=== PATIENT | male | born 2000 | race Caucasian/White ===

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

== ENCOUNTER 2021-07-07 18:04 | Emergency (ER) | payer SELFPAY ==
--- NOTE | 2021-07-07 18:12 | XRR_ITS ---
PROCEDURE INFORMATION: Exam: XR Chest Exam date and time: 07/07/2021 6:12 PM Age: 20 years old Clinical indication: Fever and shortness of breath; Additional info: Fever and upper respiratory symptoms TECHNIQUE: Imaging protocol: XR of the chest. Views: 1 view. COMPARISON: No relevant prior studies available. FINDINGS: Lungs: Unremarkable. No consolidation. Pleural spaces: Unremarkable. No pleural effusion. No pneumothorax. Heart/Mediastinum: Unremarkable. No cardiomegaly. Bones/joints: Unremarkable. XR/XR chest 1V portable [id number] IMPRESSION: No acute findings.
[2021-07-07 18:42] VITALS: BP 113/70; PULSE 101; RESP 20; TEMP 38.1; O2SAT 98; BMI 24.3
[2021-07-07 20:32] LABS: Influenza A by IFA Negative (Negative); Influenza B by IFA Negative (Negative)
[2021-07-07 20:55] VITALS: BP 115/56; PULSE 93; RESP 18; TEMP 37.4; O2SAT 100
--- NOTE | 2021-07-07 21:13 | ED_ITS ---
HPI - General Adult General: Chief complaint: Fever Stated complaint: fever,body aches Time Seen by Provider: 07/07/21 21:04 History of Present Illness: HPI narrative: Patient is a 20-year-old male up-to-date with vaccines presenting to emergency room 1 day of headache, bilateral flank pain and muscle pain around the hips. Patient first described pain upon waking this morning began having a headache. Patient reports mild cough and shortness of breath with fatigue and decreased energy. Patient has not been in contact with anyone Covid. Patient denies any neck stiffness. Denies any nausea/vomiting, abdominal complaints including diarrhea melena or he matochezia. Patient is able to tolerate p.o. without difficulty no other medical problems. Denies any urinary symptoms, hematuria, or history kidney stone. Onset:earlier AM Duration:ongoing Location:home Severity:moderate Review of Systems Narrative: Constitutional: No fever, no chills. HEENT: No vision changes CV: No chest pain, no palpitations PULM: +cough, +dyspnea. GI: No abdominal pain, no N/V/D. : No dysuria MSKEL: +b/l flank and hip pain SKIN: No new rashes, no lesions. NEURO: No headache, no focal weakness. HEME: No visible bruises PSYCH: Normal mood PFSH ED PFSH: Medical History (Updated 07/07/21 @ 21:11 by Norris Mata MD) No pertinent past medical history Surgical History H/O ventricular septal defect repair Social History Smoking and tobacco status: current every day smoker Physical Exam Narrative: EXAM NARRATIVE: Head: Atraumatic Eyes: PERRL, conjunctiva without injection ENT: Mucous membrane moist NECK: Supple, ROM intact, no nuchal rigidity LUNGS: LCTAB, no crackles/rhonchi CV: RRR ABDOMEN: Soft, No focal TTP. NO guarding rebound, guarding, rigidity. No CVA tenderness to percussion. Neg Berger/Neg McBurney's point tenderness, no suprabupic tenderness to palpation EXTREMITY: Normal ROM SKIN: No rash or erythema NEURO: Awake and alert, no focal motor deficits PSYCH: Normal mood and affect Course Vital Signs: Vital signs: Vital Signs Temperature 99.4 F 07/07/21 20:55 Pulse Rate 93 07/07/21 20:55 Respiratory Rate 18 07/07/21 20:55 Blood Pressure 115/56 07/07/21 20:55 Pulse Oximetry 100 07/07/21 20:55 MDM - General Adult MDM Narrative: Medical decision making narrative: Patient is a 20-year-old male presented presenting with 1 day of headache, bilateral flank pain and hip pain, and cough. On exam, patient is afebrile today. X-ray chest did not show any signs of focal pneumonia. Influenza negative. Covid PCR pending. Given presentation, suspect the patient has early viral prodrome consistent with possible Covid. No suspicion for meningitis at this time. I have given patient follow up with our case operator to be seen by a primary care provider for evaluation of symptoms which are likely viral. Patient aware of a call from our case operator to schedule for appointment(s) and verbalizes understanding of the importance of following up. At 9:43pm, covid PCR is positive/ Rx tylenol PRN fever, menthol/lidocaine PRN pain and maalox PRN abd pain Disposition: Discharge. Patient counseled regarding diagnostic impression, treatment plan. Patient given ED strict return precautions to return for continuation, worsening, or development of new symptoms. Instructed to f/u w/ PCP regarding symptoms today. Patient verbalized understanding. Lab Data: Labs: Lab Results 07/07/21 07/07/21 19:25 19:25 Coronavirus 229E ( PCR) Not detected (NOT DETECT) Influenza Type A A g Negative (Negative) Influenza Type B A g Negative (Negative) SARS-CoV-2 (PCR) Detected A (NOT DETECT) Imaging Data^: Other Imaging: Radiologist's impression: [address] [id number] ReportSigned Patient: Baldemar Judd #: [id number]: 2000Acct#:[id number]/Sex: 20 / MADM Date: 07/07/21Loc: ERRoom/Bed:Attending Dr: Ordering Provider/Ordering MD: Duane Patel Date of Service: 07/07/21 Procedure(s): XR chest 1V portable [id number] Accession Number(s): [id number] Report Number: [id number] PROCEDURE INFORMATION: Exam: XR Chest Exam date and time: 07/07/2021 6:12 PM Age: 20 years old Clinical indication: Fever and shortness of breath; Additional info: Fever and upper respiratory symptoms TECHNIQUE: Imaging protocol: XR of the chest. Views: 1 view. COMPARISON: No relevant prior studies available. FINDINGS: Lungs: Unremarkable. No consolidation. Pleural spaces: Unremarkable. No pleural effusion. No pneumothorax. Heart/Mediastinum: Unremarkable. No cardiomegaly. Bones/joints: Unremarkable. XR/XR chest 1V portable [id number] IMPRESSION: No acute findings. Dictated By:Kalia Blood DOSigned By:Kalia Blood DOSigned Date/Time:07/07/21/ 11 Discharge Plan Discharge Patient Disposition: Home Clinical Impression: Fever, Myalgia, Flank pain Condition: Stable Prescriptions: New acetaminophen 500 mg tablet 500 mg PO Q6H PRN (Reason: pain) 5 Days Qty: 20 RF: 0 lidocaine 5 % adhesive patch,medicated 1 patch topical DAILY PRN (Reason: pain) 10 Days Qty: 10 RF: 0 ibuprofen 400 mg tablet 400 mg PO Q8H PRN (Reason: pain) 7 Days Qty: 21 RF: 0 Maalox Advanced 1,000-60 mg tablet,chewable 1 tab PO TID PRN (Reason: abdominal pain) 7 Days Qty: 21 RF: 0 Biofreeze (menthol) 5 % gel 1 ea topical BID PRN (Reason: pain) 10 Days Qty: 1 RF: 0 No Action guaifenesin 400 mg tablet 400 mg PO TID 7 Days Qty: 21 RF: 0 benzonatate [Tessalon Perles] 100 mg capsule 100 mg PO BID PRN (Reason: cough) Qty: 14 RF: 0 albuterol sulfate [Ventolin HFA] 90 mcg/actuation HFA aerosol inhaler 2 puff inhalation Q6H PRN (Reason: shortness of breath or wheezing) Qty: 6.7 RF: 0 ondansetron 4 mg tablet,disintegrating 4 mg PO Q8H PRN (Reason: nausea and vomiting) Qty: 14 RF: 0 Discharge Orders: Discharge ED (Routine); Ordered 07/07/21 Ordered By: Norris Mata Referrals: Carlos Enrique Law MD [Primary Care Provider] - Discharge Diet: Advance as tolerated Discharge Activity: Resume usual activity Patient Instructions: Fever in Adults (ED), COVID-19 (Coronavirus Disease 2019) (ED) Activity Restrictions/Additional Instructions: Come back to the emergency room if your symptoms worsen, have any shortness of breath, fever/chills, dehydration, inability tolerate p.o., any difficulty breathing, or any new or concerning complaints. Please return the emergency room if your pulse ox reads less than 88%. Coding Level of Care Code ED Early Intervention School Psychologist for Melissa Macias
[2021-07-07] MEDS: ketorolac 30 mg/mL INJ IM (21:25)
[2021-07-07] MEDS: acetaminophen 500 mg Tablet 1000 MG PO (21:26)
[2021-07-07 21:29] LABS: Adenovirus Not Detected (NOT DETECT); Chlamydia Pneumoniae Not Detected (NOT DETECT); Coronavirus 229E,HKU1,NL63,OC4 Not Detected (NOT DETECT); Human Metapneumovirus Not Detected (NOT DETECT); Human Rhinovirus/Enterovirus Not Detected (NOT DETECT); Influenza A Not Detected (NOT DETECT); Influenza A H1 Not Detected (NOT DETECT); Influenza A H1-2009 Not Detected (NOT DETECT); Influenza A H3 Not Detected (NOT DETECT); Influenza B Not Detected (NOT DETECT); Mycoplasma Pneumoniae Not Detected (NOT DETECT); Parainfluenza Virus Type 1 Not Detected (NOT DETECT); Parainfluenza Virus Type 2 Not Detected (NOT DETECT); Parainfluenza Virus Type 3 Not Detected (NOT DETECT); Parainfluenza Virus Type 4 Not Detected (NOT DETECT); Respiratory Syncytial Virus A Not Detected (NOT DETECT); Respiratory Syncytial Virus B Not Detected (NOT DETECT); SARS-COV-2 Detected (NOT DETECT)
--- NOTE | 2021-07-07 22:12 | PC.NURSE ---
patient in no obvious distress. patient pass PO challenge. no nausea vomiting with 2 cups of water. Patient states pain 5/10 improved after toradol shot.
[2021-07-07 22:17] VITALS: BP 125/63; PULSE 85; RESP 18; TEMP 36.8; O2SAT 97
[2021-07-07 22:18] VITALS: BP 125/63; PULSE 84; RESP 18; TEMP 36.8; O2SAT 98
== END 2021-07-07 22:20 | disposition home or self-care (01) ==
PROVIDERS: Physician Assistant; Emergency Provider Emergency Medicine; PCP Family Medicine
DX: F17.210 Nicotine dependence, cigarettes, uncomplicated (principal); R50.9 Fever, unspecified; M79.10 Myalgia, unspecified site; R10.9 Unspecified abdominal pain; R05.9 Cough, unspecified
CPT/HCPCS: 71045; 87635; 87804; 96372; 99283; J1885

== ENCOUNTER 2022-05-19 11:00 | Emergency (ER) | payer SELFPAY ==
[2022-05-19 11:47] VITALS: BMI 22.9
[2022-05-19 11:50] VITALS: BP 131/72; PULSE 73; RESP 18; TEMP 36.8; O2SAT 96
--- NOTE | 2022-05-19 11:51 | W.ED.FALL ---
HPI - Fall General: Chief Complaint: Fall Stated Complaint: fall, loc Time Seen by Provider: 05/19/22 11:40 History of Present Illness: Mr. Judd is a 21-year-old male with remote history of VSD repair presenting to the emergency department due to fall with loss of consciousness. 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 Probably a fair amount downtime though exact duration is unclear. Mostly complaining of left-sided body pain. Intensity of discomfort is moderate. Worse with palpation and movement. Denies history of syncope in the past. No family history of early cardiac or arrhythmias that he knows of. No recent changes in health. No other specific changes in health, exacerbating, or alleviating factors identified. Onset (ago): hour(s) Fall from: standing Fall witnessed: no Loss of consciousness: Yes Length of LOC: minutes(s) Prolonged down time: unclear Context: tripped/slipped Severity: moderate Review of Systems General: Reports: 10 or more systems reviewed and unremarkable except in HPI and below PFSH ED PFSH: Medical History (Updated 05/27/22 @ 00:00 by ) No pertinent past medical history Surgical History H/O ventricular septal defect repair Social History Smoking and tobacco status: current every day smoker Physical Exam Const: COMMON NORMALS: alert GENERAL APPEARANCE: cooperative and well developed HENMT: COMMON NORMALS: normocephalic and atraumatic HEAD & SCALP: normocephalic and atraumatic THROAT: posterior oropharynx normal OTHER: No carr signs or raccoon eyes. No hemotympanum. No otorrhea or rhinorrhea. Jaw alignment normal. Dentition baseline. No obvious bony step-offs. No septal hematoma. No evidence of ocular entrapment. Eye: COMMON NORMALS: conjunctivae normal CONJUNCTIVA: Yes conjunctivae normal SCLERA: sclerae normal Neck/C-Spine: COMMON NORMALS: supple GENERAL: Yes trachea midline Resp: COMMON NORMALS: normal respiratory effort EFFORT & INSPECTION: Yes able to speak in complete sentences Cardio: COMMON NORMALS: regular rate and regular rhythm RATE: regular rate RHYTHM: regular rhythm GI: COMMON NORMALS: Soft to palpation PALPATION: Yes Soft to palpation and No Tenderness to palpation present (GI) PERCUSSION: normal to percussion Extremity: GENERAL: Yes normal exam except as noted and No edema Neuro: COMMON NORMALS: moves all extremities SENSORIUM/ORIENTATION: Yes alert and No Orientation impaired Psych: COMMON NORMALS: mental status grossly normal and Normal thought process present THOUGHT PROCESS: Normal thought process present Course Vital Signs: Vital signs: Vital Signs Temperature 98.3 F 05/19/22 11:50 Pulse Rate 60 05/19/22 13:58 Respiratory Rate 18 05/19/22 13:58 Blood Pressure 124/67 05/19/22 13:58 Pulse Oximetry 99 05/19/22 13:58 Oxygen Delivery Me thod 05/19/22 13:58 MDM - Fall Medical Decision Making 21-year-old male presenting with fall of unclear circumstances with loss of consciousness. Additional exam performed as above. EKG shows sinus rhythm, short ND interval, bradycardia, interventricular conduction delay, no STEMI. Imaging including CT head, cervical spine, and x-rays negative for acute traumatic injury requiring intervention. Patient improved after treatment with analgesia, muscle laxer, morphine. He ambulates and tolerates p.o. intake. Most likely etiology of patient's symptoms is follow-up with concussion/closed head injury and loss of consciousness. The results of ED evaluation were discussed with the patient including prescriptions and/or symptomatic cares (if applicable) including appropriate and responsible use, followup plan, and return precautions. The patient verbalized understanding and felt safe for discharge. Medical Records I reviewed the patient's medical records. Lab Data I reviewed the patient's lab results. Radiology Impressions Cervical Spine CT 05/19/22 11:59 IMPRESSION: No evidence of acute fracture or dislocation. Chest X-Ray 05/19/22 11:59 IMPRESSION: 1. No acute cardiopulmonary finding. No change. Head CT 05/19/22 11:59 IMPRESSION: 1. No evidence of intracranial hemorrhage or mass effect 2. No acute intracranial findings. Pelvis X-Ray 05/19/22 11:59 IMPRESSION: 1. Negative pelvis. Shoulder X-Ray 05/19/22 11:59 IMPRESSION: Negative left shoulder. Discharge Plan Discharge Patient Disposition: Home Clinical Impression: Concussion with loss of consciousness, Multiple contusions Condition: Stable Prescriptions: No Action albuterol sulfate [Ventolin HFA] 90 mcg/actuation HFA aerosol inhaler 2 puff inhalation Q6H PRN (Reason: shortness of breath or wheezing) Qty: 6.7 0RF ondansetron 4 mg tablet,disintegrating 4 mg PO Q8H PRN (Reason: nausea and vomiting) Qty: 14 0RF cyclobenzaprine 10 mg tablet 10 mg PO TID PRN (Reason: muscle spasm) Qty: 30 0RF prednisone 20 mg tablet 20 mg PO DAILY Qty: 5 0RF Rx Instructions: take with food. Discharge Orders: Discharge ED (Routine); Ordered 05/19/22 Ordered By: Micky Jose Referrals: Carlos Enrique Law MD [Primary Care Provider] - Discharge Diet: Usual diet Discharge Activity: Increase activity as tolerated Patient Instructions: Head Injury (ED), Contusion in Adults (ED), Pain Management Activity Restrictions/Additional Instructions: Thank you for visiting the emergency department. You were seen evaluated for likely fall with loss of consciousness. The most likely cause of your symptoms is related to closed head injury/traumatic brain injury. I do not see any broken bones on x-ray or evidence of internal injuries on CT scan. You may use oiai-rzn-gkcydjw medications such as acetaminophen and ibuprofen for pain however please do not exceed the daily recommended dosage and please keep in mind that many namebrand medications contain the same active ingredients. You may also use ice, heat, lidocaine patches, other topical fgim-bzt-ifqzzjo medications if they help. I would expect more soreness tomorrow and then slow improvement. Return to the emergency department for uncontrolled symptoms or anything else that you are concerned about a feel needs emergency department evaluation. Stand Alone Forms: Work/School Release Coding Level of Care Code ED Salon Sales Consultant for Melissa Fwd Exam Comprehensive
--- NOTE | 2022-05-19 11:59 | CT_ITS ---
WS: [id number] CT HEAD TECHNIQUE: Noncontrast CT of the head obtained from the skullbase to the vertex. CLINICAL INFORMATION: fall, loc, posterior pain COMPARISON: 2016 DLP: 1337.[address] scans at [facility] use at least one of these dose optimization techniques: automated e xposure control; mA and/or kV adjustment per patient size (includes targeted exams where dose is matc hed to clinical indication); or iterative reconstruction. FINDINGS: No evidence of intracranial hemorrhage or mass effect. Ventricular system and basal cisterns are rodriguez nt. No extra-axial fluid collections. No evidence of mass or mass effect. Normal roy-white different iation. Paranasal sinuses and mastoid air cells are well aerated. .Normal visualized soft tissues. CT/CT head wo con* [id number] IMPRESSION: 1. No evidence of intracranial hemorrhage or mass effect 2. No acute intracranial findings.
--- NOTE | 2022-05-19 11:59 | XR_ITS ---
WS: [id number] Exam: XR shoulder LT min 2V* [id number] Date/Time of Exam: 05/19/2022 12:12 PM Reason For Exam: fall, loc, pain The projections of the shoulder reveal no fractures, anomalies, soft tissue swelling, or calcificatio ns. There is normal bony alignment. No irregularity of the bony architecture is noted. XR/XR shoulder LT min 2V* [id number] IMPRESSION: Negative left shoulder.
--- NOTE | 2022-05-19 11:59 | XR_ITS ---
WS: [id number] Exam: XR pelvis 1-2V* [id number] Date/Time of Exam: 05/19/2022 12:12 PM Reason For Exam: fall, loc, pain No acute fracture. The hips and SI joints are unremarkable. XR/XR pelvis 1-2V* [id number] IMPRESSION: 1. Negative pelvis.
--- NOTE | 2022-05-19 11:59 | CT_ITS ---
WS: [id number] CT CERVICAL TRAUMA TECHNIQUE: Noncontrast CT of the cervical spine with coronal and sagittal reformatted images. CLINICAL INFORMATION: fall, loc, pain COMPARISON: None. DLP: 1337.[address] scans at [facility] use at least one of these dose optimization techniques: automated e xposure control; mA and/or kV adjustment per patient size (includes targeted exams where dose is matc hed to clinical indication); or iterative reconstruction. FINDINGS: Straightening with reversal of the normal cervical lordosis. Normal craniocervical junction. Normal C 1-C2 articulation. Dens is normal in appearance. Normal occipital condyles. No high-grade spinal willie l narrowing. Normal C1 ring. No evidence of acute fracture or dislocation. Normal prevertebral soft tissues. Mastoids air cells are well aerated. CT/CT cervical spin wo con* [id number] IMPRESSION: No evidence of acute fracture or dislocation.
--- NOTE | 2022-05-19 11:59 | XR_ITS ---
WS: [id number] Exam: XR chest 1V portable [id number] Date/Time of Exam: 05/19/2022 12:12 PM Reason For Exam: fall, loc, pain Comparison 07/07/2021. The lungs are fully inflated and clear. Normal cardiomediastinal silhouette. No pleural effusions. Tayo ny structures are intact. Signs of median sternotomy. XR/XR chest 1V portable [id number] IMPRESSION: 1. No acute cardiopulmonary finding. No change.
[2022-05-19 12:27] VITALS: RESP 12; O2SAT 98
[2022-05-19] MEDS: morphine 4 mg/mL SDV 1 mL IM (12:27)
--- NOTE | 2022-05-19 13:05 | ECG_ITS ---
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 Measurements Intervals Eighty Four Rate: 50 P: 20 MD: 105 QRS: 103 QRSD: 107 T: 38 QT: 414 QTc: 380 Interpretive Statements SINUS BRADYCARDIA WITH SHORT MD INTERVAL RIGHT AXIS DEVIATION [QRS AXIS > 100] INCOMPLETE RIGHT BUNDLE BRANCH BLOCK [90+ ms QRS DURATION, TERMINAL R IN V1/V2, 40+ ms S IN I/aVL/V4/V5/V6] Compared to ECG 08/22/2019 14:36:22 Right-axis deviation now present Sinus rhythm no longer present Electronically Signed On 05-20-2022 6:25:39 FUSE CUP EXPANDER by Dashawn Almanza M.D. [id number]
[2022-05-19 13:14] VITALS: BP 116/69; BP 117/73; BP 119/69; PULSE 58; PULSE 62; PULSE 63
[2022-05-19 13:58] VITALS: BP 124/67; PULSE 60; RESP 18; O2SAT 99
[2022-05-19] MEDS: acetaminophen 500 mg Tablet 1000 MG PO (13:59)
[2022-05-19] MEDS: ketorolac 30 mg/mL INJ 15 MG IM (14:00)
[2022-05-19] MEDS: diazePAM 2 mg Tablet PO (14:00)
== END 2022-05-19 14:17 | disposition home or self-care (01) ==
PROVIDERS: Emergency Provider Emergency Medicine; PCP Family Medicine
DX: S06.0X9A Concussion with loss of consciousness of unspecified duration, initial encounter (principal); W19.XXXA Unspecified fall, initial encounter; T14.8XXA Other injury of unspecified body region, initial encounter
CPT/HCPCS: 70450; 71045; 72125; 72170; 73030; 93005; 96372; 96374; 99285; J1885; J2270

== ENCOUNTER 2023-04-02 10:33 | Emergency (ER) | payer OTHER, SELFPAY ==
[2023-04-02 10:37] VITALS: BP 152/93; PULSE 79; RESP 18; TEMP 36.8; O2SAT 99
--- NOTE | 2023-04-02 10:41 | XRR_ITS ---
PROCEDURE INFORMATION: Exam: XR Left Elbow Exam date and time: 04/02/2023 10:51 AM Age: 22 years old Clinical indication: Pain and injury or trauma; Fall; Other: Left elbow pain post foosh TECHNIQUE: Imaging protocol: Radiologic exam of the left elbow. Views: 3 or more views. COMPARISON: No relevant prior studies available. FINDINGS: Bones/joints: The distal humerus is intact. The proximal radius is intact. The proximal ulna is intact. The radiocapitellar and ulnotrochlear joint spaces are normally maintained. Soft tissues: Joint effusion noted. XR/XR elbow LT min 3V* [id number] IMPRESSION: 1. Joint effusion noted. 2. No radiographically evident fracture identified.
[2023-04-02] MEDS: HYDROcodone-acetaminophen 5-325 mg Tablet 1 TAB PO (10:47)
--- NOTE | 2023-04-02 10:48 | ED_ITS ---
HPI - Extremity Problem General: Chief complaint: Extremity Injury, Upper Stated complaint: left arm injury Time Seen by Provider: 04/02/23 10:41 Source: patient Mode of arrival: ambulatory Limitations: no limitations History of Present Illness: 22-year-old male states that he had fell last night fell onto an outstretched left arm and has had left elbow pain since then he states he had swelling he st ates its painful with movement especially extension he rates his pain a 6 out of 10 denies any other injuries. Associated symptoms: Deny chest pain, fever(s) or rash Review of Systems Const: Denies: fever(s) or chills ENMT: Denies: throat pain or dental pain Card: Denies: chest pain Resp: Denies: dyspnea GI: Denies: abdominal pain, nausea, vomiting or diarrhea Musc: Reports: extremity pain; Denies: neck pain or back pain Skin/Breast: Denies: rash Neuro: Denies: headache(s) PFS ED PFSH: Medical History (Updated 04/02/23 @ 11:09 by Alejandro Ballesteros MD) No pertinent past medical history Surgical History H/O ventricular septal defect repair Social History Smoking and tobacco status: current every day smoker Physical Exam Const: COMMON NORMALS: no acute distress, patient oriented x3 and healthy appearing HENMT: COMMON NORMALS: normocephalic and atraumatic HEAD & SCALP: normocephalic and atraumatic Eye: COMMON NORMALS: conjunctivae normal CONJUNCTIVA: Yes conjunctivae normal Neck/C-Spine: COMMON NORMALS: full ROM and supple Chest: COMMONS NORMALS: normal inspection of the chest Resp: COMMON NORMALS: normal respiratory effort Cardio: COMMON NORMALS: regular rate and No murmurs present (Cardio) RATE: regular rate Extremity: NARRATIVE EXTREMITY EXAM: Swelling tenderness over left elbow does have pain with range of motion Neuro: COMMON NORMALS: patient oriented x3, moves all extremities and no focal motor deficits Psych: COMMON NORMALS: mental status grossly normal, Normal thought process present and cooperative THOUGHT PROCESS: Normal thought process present Skin: COMMON NORMALS: no rashes or lesions noted and no wounds GENERAL SKIN EXAM: no rashes or lesions noted Course Vital Signs: Vital signs: Vital Signs Temperature 98.2 F 04/02/23 10:37 Pulse Rate 79 04/02/23 10:37 Respiratory Rate 18 04/02/23 10:37 Blood Pressure 152/93 04/02/23 10:37 Pulse Oximetry 99 04/02/23 10:37 Oxygen Delivery Me thod Room Air 04/02/23 10:37 MDM - Extremity (Nontraumatic) Medical Decision Making Patient presents with left joint injury he does have an effusion noted on the x- ray concerning for a possible radial head fracture we will immobilize in a splint have him follow-up with orthopedics for repeat x-ray. Medical Records I reviewed the patient's medical records. Lab Data Radiology Impressions Elbow X-Ray 04/02/23 10:41 IMPRESSION: 1. Joint effusion noted. 2. No radiographically evident fracture identified. All radiology interpretation(s) finalized by discharge Discharge Plan Discharge Patient Disposition: Home Clinical Impression: Closed fracture of left elbow Condition: Stable Prescriptions: New Naprosyn 500 mg tablet 500 mg PO BID PRN (Reason: pain) Qty: 20 0RF No Action ibuprofen 600 mg Tablet 600 mg PO Q8H PRN (Reason: Pain) Discharge Orders: Discharge ED (Routine); Ordered 04/02/23 Ordered By: Alejandro Ballesteros Referrals: Mulugeta Pham DO [Physician] - 1-3 days Carlos Enrique Law MD [Primary Care Provider] - Discharge Diet: Advance as tolerated Discharge Activity: Resume usual activity Patient Instructions: Elbow Fracture (ED) Coding Level of Care Code ED Research Test Engine Operator for Melissa Macias
--- NOTE | 2023-04-02 16:57 | PC.SOCIAL ---
Ortho Referral Referral message sent to clinic at this time. Clinic to contact patient with appt date/time.
== END 2023-04-02 11:52 | disposition home or self-care (01) ==
PROVIDERS: Emergency Provider Emergency Medicine; PCP Family Medicine
DX: S42.402A Unspecified fracture of lower end of left humerus, initial encounter for closed fracture (principal); F17.210 Nicotine dependence, cigarettes, uncomplicated; W19.XXXA Unspecified fall, initial encounter
CPT/HCPCS: 29105; 73080; 99283

== ENCOUNTER 2023-04-17 06:15 | Outpatient (CLI) | payer OTHER, SELFPAY ==
--- NOTE | 2023-04-17 06:30 | MR_ITS ---
WS: [id number] MRI LEFT ELBOW WITHOUT CONTRAST. COMPARISON: Radiograph 04/02/2023 Multiplanar, multisequence imaging is performed without contrast. History: Unable to straighten elbow. Recent trauma. Posterior LEFT elbow pain, fall. Moderate amount of edema involving the bones of the elbow. Edema in the radial head and neck and into the proximal metaphysis. There is a small amount of edema involving the coronoid process with irregu larity of the cortex. Additional marrow edema in the lateral humeral epicondyle. Seen best on the lat eral projection is significant cortical irregularity involving the coronoid process suspicious for fr acture. Also within the joint fluid there are a few small low-attenuation nodules which are probably loose bodies. These measure approximately 3 mm and at this time closely associated with the radial he ad. There is a large joint effusion. There is a large fluid gap in the region of the ulnar collateral lig ament. The common flexor tendon may also be partially torn but not completely. The radial collateral ligament and common extensor and tendon are normal. IMPRESSION: 1. Moderate amount of bone marrow edema involving the bones of the elbow including the proximal radiu s, ulna and the lateral humeral epicondyles. 2. Cortical irregularity of the coronoid process. Suspicious for a tiny avulsion fracture of the angel noid process. 3. Large joint effusion. 4. Fluid gap in the region of the ulnar collateral ligament and the common flexor tendon. No identifi able ulnar collateral ligament. Common flexor tendon appears thin but not completely torn. 5. Small loose body in the joint effusion.
== END 2023-04-17 06:16 | disposition home or self-care (01) ==
LOC: RAD 06:16
PROVIDERS: PCP Family Medicine; Visit Provider Physician Assistant
DX: S42.402A Unspecified fracture of lower end of left humerus, initial encounter for closed fracture (principal); X58.XXXA Exposure to other specified factors, initial encounter; M25.422 Effusion, left elbow; M24.022 Loose body in left elbow
CPT/HCPCS: 73221

== ENCOUNTER 2023-05-02 11:31 | Outpatient (CLI) | payer OTHER, SELFPAY | END 2023-05-02 11:32 | disposition home or self-care (01) | LOC: SPT 11:32 | PROVIDERS: PCP Family Medicine; Visit Provider Physician Assistant | DX: Z46.89 Encounter for fitting and adjustment of other specified devices (principal); S42.402D Unspecified fracture of lower end of left humerus, subsequent encounter for fracture with routine healing; X58.XXXD Exposure to other specified factors, subsequent encounter | CPT/HCPCS: 97760; L3761 ==

== ENCOUNTER → 2023-05-16 07:59 | Outpatient (BNVA) | payer OTHER, SELFPAY | PROVIDERS: PCP Family Medicine; Visit Provider Physician Assistant | DX: S42.402D Unspecified fracture of lower end of left humerus, subsequent encounter for fracture with routine healing (principal); W19.XXXD Unspecified fall, subsequent encounter | CPT/HCPCS: 73080 ==

== ENCOUNTER → 2023-05-30 09:41 | Outpatient (BNVA) | payer OTHER, SELFPAY | PROVIDERS: PCP Family Medicine; Visit Provider Physician Assistant | DX: S42.402D Unspecified fracture of lower end of left humerus, subsequent encounter for fracture with routine healing (principal); X58.XXXD Exposure to other specified factors, subsequent encounter | CPT/HCPCS: 73080 ==

== ENCOUNTER → 2023-06-15 08:24 | Outpatient (BNVA) | payer OTHER, SELFPAY | PROVIDERS: PCP Family Medicine; Visit Provider Physician Assistant | DX: S42.402D Unspecified fracture of lower end of left humerus, subsequent encounter for fracture with routine healing (principal); X58.XXXD Exposure to other specified factors, subsequent encounter | CPT/HCPCS: 73080 ==

== ENCOUNTER 2025-03-21 12:39 | Emergency (ER) | payer OTHER, SELFPAY ==
--- NOTE | 2025-03-21 12:41 | XR_ITS ---
WS: [id number] XR elbow RT min 3V* [id number] REASON FOR EXAM: injury FINDINGS: Displacement of the anterior fat pad indicating joint effusion. Discontinuity of the radial head cortex and and an ill-defined transverse lucent line across the base of the radial head. No other significant bone or joint abnormality. XR/XR elbow RT min 3V* [id number] IMPRESSION: Nondisplaced radial head fracture as above.
--- OUTSIDE RECORDS SUMMARY | 2025-03-21 12:44 | XMS_ITS | Encounter Summary ---
Author Organization [facility] Address [address] [facility] Attn: [place] [address] Care Team Providers Care Mail Carrier Name Role Phone Carlos Enrique Law MD Primary Care Provider [phone] Encounter Details Date Type Department Care Team (Late st Contact Info) Description 2001 Outpatient Historical Jesus Meade MD [address] [place], [place] [address] Social History Tobacco Use Types Packs/Day Years Used Date Smoking Tobacco: Never Assessed Sex and Gender Information Value Date Recorded Sex Assigned at Not on file 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
--- OUTSIDE RECORDS SUMMARY | 2025-03-21 12:44 | XMS_ITS | Encounter Summary ---
Author Organization [facility] Address [address] [facility] Attn: [place] [address] Care Team Providers Care Duralumin Mechanic Name Role Phone Carlos Enrique Law MD Primary Care Provider [phone]- [phone] Encounter Details Date Type Department Care Team (Late st Contact Info) Description 03/01/2002 Outpatient Historical Non-Staff, Physician NO ADDRESS ON FILE Social History Tobacco Use Types Packs/Day Years Used Date Smoking Tobacco: Never Assessed Sex and Gender Information Value Date Recorded Sex Assigned at Not on file 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
--- OUTSIDE RECORDS SUMMARY | 2025-03-21 12:44 | XMS_ITS | Encounter Summary ---
Author Organization [facility] Address [address] [facility] Attn: [place] [address] Care Team Providers Care Emergency Response Coordinator Name Role Phone Carlos Enrique Law MD Primary Care Provider [phone]- [phone] Encounter Details Date Type Department Care Team (Late st Contact Info) Description 01/28/2002 Outpatient Historical Jesus Meade MD [address] [place], [place] [address] Social History Tobacco Use Types Packs/Day Years Used Date Smoking Tobacco: Never Assessed Sex and Gender Information Value Date Recorded Sex Assigned at Not on file 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
--- OUTSIDE RECORDS SUMMARY | 2025-03-21 12:44 | XMS_ITS | Clinical Summary ---
Author Organization [facility] Address [address] [facility] [address] [place] [address] Phone Care Team Providers Care Director Of Product Management Name Role Phone Carlos Enrique Law MD Primary Care Provider [phone] Allergies Active Allergy Reactions Criticality Noted Date Comments Diphenhydramine Hcl Anxiety Low 08/18/2019 Penicillins Unknown 08/18/2019 Sulfamethoxazole-Trimethoprim Hives High 2019 Medications ibuprofen (MOTRIN) 600 mg tablet Take 1 Tablet (600 mg) by mouth 3 times daily as needed for Pain. 15 Tablet 08/18/2019 Active Immunizations Immunization Administration Dates Next Due (M-M-R II/PRIORIX)(12 MO UP) MEASLES, MUMPS AND RUBELLA VIRUS VACCINE, 0.5 ML IM/SUBCUT 12/13/2002 (VARIVAX)(12 MOS UP)VARICELL A VIRUS VACCINE (PF) 0.5 ML, SUB CUT 12/13/2002 Dt Dtp Dtap Vaccine 01/16/2003, 2,04/17/2002,2001 HIB, Unspecified Formulation 12/13/2002, 06/18/2002,04/17/2002,2001,2001 Hepatitis B Vaccine 06/18/2002,02/12/2002,2001 IPV/OPV 12/13/2002,04/17/2002,02/12/2002 Influenza Seasonal Unspecifi ed Formulation IM 05/28/2002 Pneumococcal 7-valent conjug ate vaccine IM 03/28/2003,01/16/2003 Social History Tobacco Use Types Packs/Day Years Used Date Smoking Tobacco: Never Smokeless Tobacco: Never Alcohol Use Standard Drinks/Week Comments Never 0 (1 standard drink = 0.6 oz pur e alcohol) Sex and Gender Information Value Date Recorded Sex Assigned at Not on file 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 Gender Identity Not on file Sexual Orientation Not on file Last Filed Vital Signs Vital Sign Reading Time Taken Comments Blood Pressure 150/85 08/18/2019 10:13 PM JOINER HELPER Pulse 81 08/18/2019 6:15 PM JOINER HELPER Temperature 36.7 C (98.1 F) 08/18/2019 10:13 PM JOINER HELPER Respiratory Rate 18 08/18/2019 10:13 PM JOINER HELPER Oxygen Saturation 95% 08/18/2019 10:13 PM JOINER HELPER Inhaled Oxygen Concentration - - Weight 78.5 kg (173 lb) 08/18/2019 5:34 PM JOINER HELPER Height 177.8 cm (5' 10 ) 08/18/2019 5:34 PM JOINER HELPER Body Mass Index 24.82 08/18/2019 5:34 PM JOINER HELPER Plan of Treatment Health Maintenance Due Date Last Done Comments DTAP/TDAP/TD VACCINES (5 - Tdap) 2012 01/16/2003, 06/18/2002, 04/17/2002, Additional history exists HPV VACCINES (1 - Male 3-dos e series) 2016 INFLUENZA VACCINE (#1) 2025 05/28/2002 HEPATITIS B VACCINES Completed 06/18/2002, 02/12/2002, 2001 Care Teams Director Of Product Management Relationship Specialty [place] [address] [place] [phone] PCP - General Family Practice 08/18/19
--- OUTSIDE RECORDS SUMMARY | 2025-03-21 12:44 | XMS_ITS | Encounter Summary ---
Author Organization [facility] Address [address] [facility] Attn: [place] [address] Care Team Providers Care Door Clamper Name Role Phone Carlos Enrique Law MD Primary Care Provider [phone] Encounter Details Date Type Department Care Team (Late st Contact Info) Description 2001 Outpatient Historical Jesus Meade MD [address] [place], [place] [address] Social History Tobacco Use Types Packs/Day Years Used Date Smoking Tobacco: Never Assessed Sex and Gender Information Value Date Recorded Sex Assigned at Not on file 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
--- OUTSIDE RECORDS SUMMARY | 2025-03-21 12:44 | XMS_ITS | Clinical Summary ---
Author Organization [employer] Address [address] [facility] Attn: [place] [address] Care Team Providers Care Car Inspector Name Role Phone Carlos Enrique Law MD Primary Care Provider Allergies Active Allergy Reactions Criticality Noted Date Comments Diphenhydramine Hcl Anxiety Low 08/18/2019 Penicillins Unknown 08/18/2019 Sulfamethoxazole-Trimethoprim Hives High 2019 Medications ibuprofen (MOTRIN) 600 mg tablet Take 1 Tablet (600 mg) by mouth 3 times daily as needed for Pain. 15 Tablet 0 08/18/2019 Active Immunizations Immunization Administration Dates Next [...] at Not on file Legal Sex Male 10:54 AM WAXED BAG MACHINE OPERATOR Gender Identity Not on file Sexual Orientation Not on file Last Filed Vital Signs Vital Sign Reading Time Taken Comments Blood Pressure 150/85 08/18/2019 10:13 PM WAXED BAG MACHINE OPERATOR Pulse 81 08/18/2019 6:15 PM WAXED BAG MACHINE OPERATOR Temperature 36.7 C (98.1 F) 08/18/2019 10:13 PM WAXED BAG MACHINE OPERATOR Respiratory Rate 18 08/18/2019 10:13 PM WAXED BAG MACHINE OPERATOR Oxygen Saturation - - Inhaled Oxygen Concentration - - Weight 78.5 kg (173 lb) 08/18/2019 5:34 PM WAXED BAG MACHINE OPERATOR Height 177.8 cm (5' 10 ) 08/18/2019 5:34 PM WAXED BAG MACHINE OPERATOR Body Mass Index 24.82 08/18/2019 5:34 PM WAXED BAG MACHINE OPERATOR Plan of Treatment Health Maintenance Due Date Last Done Comments DTAP/TDAP/TD VACCINES (5 - Tdap) 2012 01/16/2003, 06/18/2002, 04/17/2002, Additional history exists HPV VACCINES (1 - Male 3-dos e series) 2016 INFLUENZA VACCINE (#1) 2025 05/28/2002 HEPATITIS B VACCINES Completed 06/18/2002, 02/12/2002, 2001 Care Teams Car Inspector Relationship Specialty Start Date End Date Carlos Enrique Law MD [address] [place] [phone] PCP - General Family Practice 08/18/19
--- OUTSIDE RECORDS SUMMARY | 2025-03-21 12:44 | XMS_ITS | Encounter Summary ---
Author Organization [facility] Address [address] [place] [address] Care Team Providers Care Service Manager Name Role Phone Carlos Enrique Law MD Primary Care Provider [phone] Encounter Details Date Type Department Care Team (Latest Contact Info) Description 09/24/2002 Outpatient Historical [facility] [address] [place] [address] Jesus Meade MD [address] [address] POSTSURGICAL STATES NEC (Primary Dx) Social History Tobacco Use Types Packs/Day Years Used Date Smoking Tobacco: Never Assessed Sex and Gender Information Value Date Recorded Sex Assigned at Not on file 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
--- OUTSIDE RECORDS SUMMARY | 2025-03-21 12:44 | XMS_ITS | Encounter Summary ---
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
--- OUTSIDE RECORDS SUMMARY | 2025-03-21 12:44 | XMS_ITS | Encounter Summary ---
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
[2025-03-21 12:45] VITALS: BP 134/82; PULSE 69; RESP 17; TEMP 36.4; O2SAT 100; BMI 23.6
--- NOTE | 2025-03-21 12:52 | XR_ITS ---
WS: [id number] XR wrist RT min 3V* [id number] REASON FOR EXAM: injury FINDINGS: No acute fracture. Joint spaces of the wrist are intact and well preserved. Normal alignment of the carpal bones. XR/XR wrist RT min 3V* [id number] IMPRESSION: No acute bone or joint abnormality.
--- NOTE | 2025-03-21 13:31 | ED_ITS ---
HPI - Extremity Injury (Upper) General: Chief Complaint: Extremity Injury, Upper Stated Complaint: rt elbow inj Time Seen by Provider: 03/21/25 12:52 Source: patient Mode of arrival: ambulatory Limitations: no limitations History of Present Illness: Patient is a 24-year-old male who presents to ED today for evaluation of an injury to his right arm that he sustained earlier today after he accidentally tripped and fell and landed on his outstretched hand. Patient is complaining mainly of pain to the right elbow. complaint: injury to: right and elbow Onset (ago): hour(s) Other Extremity Injury: Right: wrist and elbow Other injuries: none Place: home Severity: moderate Relieving factors: immobilization Exacerbating factors: movement of extremity Context: fall Associated symptoms: Reports no associated symptoms; Denies neck pain or weakness in extremities Related Data Previous Rx's ?Medication ?Instructions ?Recorded HINGED ELBOW BRACE #1 ea 05/02/23 escitalopram oxalate 10 mg tablet 10 mg PO DAILY #30 t abs 01/27/25 (Lexapro) ibuprofen 600 mg tablet 600 mg PO Q8H PRN Pain #90 t abs 01/27/25 Allergies Allergy/AdvReac Type Severity Reaction Status Date / Time diphenhydramine (From Allergy ADR-Agitate Verified 06/15/23 08:34 Benadryl) d Penicillins Allergy ALGY-Rash Verified 06/15/23 08:34 Sulfa (Sulfonamide Allergy ALGY-Rash Verified 06/15/23 08:34 Antibiotics) Review of Systems Musc: Reports: joint pain (R elbow, R wrist); Denies: neck pain, back pain, joint swelling, joint redness or joint warmth Neuro: Denies: numbness in extremities, weakness in extremities or sensory changes [facility] ED PFSH: Medical History No pertinent past medical history Surgical History H/O ventricular septal defect repair Social History Smoking and tobacco/nicotine status: never used tobacco/nicotine Physical Exam Const: COMMON NORMALS: no acute distress, average body habitus, patient oriented x3, no limitations, healthy appearing, alert and well nourished Extremity: COMMON NORMALS: normal to inspection, full ROM and capillary refill normal GENERAL: Yes normal exam except as noted RIGHT UPPER EXTREMITY: Yes elbow joint (TTP with full flexion/extension of R elbow) Right elbow: Yes neurovascular exam (normal) and Yes wrist (normal passive ROM of R wrist) Right wrist: Yes neurovascular exam (normal) Neuro: COMMON NORMALS: patient oriented x3, moves all extremities, no focal motor deficits and no sensory deficits noted SENSORIUM/ORIENTATION: Yes alert Course Vital Signs: Vital signs: Vital Signs Temperature 97.5 F L 03/21/25 12:45 Pulse Rate 69 03/21/25 12:45 Respiratory Rate 17 03/21/25 12:45 Blood Pressure 134/82 03/21/25 12:45 Pulse Oximetry 100 03/21/25 12:45 Oxygen Delivery Me thod Room Air 03/21/25 12:45 MDM - Extremity Injury (Upper) Medical Decision Making XR showing a nondisplaced right radial head fracture. Patient will be placed in a splint and will follow-up with orthopedics. Differential Diagnosis Likely sprain and strain of wrist and fracture of wrist Medical Records I reviewed the patient's medical records. Lab Data Radiology Impressions Elbow X-Ray 03/21/25 12:41 IMPRESSION: Nondisplaced radial head fracture as above. Wrist X-Ray 03/21/25 12:52 IMPRESSION: No acute bone or joint abnormality. All radiology interpretation(s) finalized by discharge Discharge Plan Discharge Patient Disposition: Home Clinical Impression: Closed fracture of head of right radius Qualifiers: Encounter type: initial encounter Fracture alignment: nondisplaced Qualified Code(s): S52.124A - Nondisplaced fracture of head of right radius, initial encounter for closed fracture Condition: Stable Prescriptions: No Action (DME) HINGED ELBOW BRACE See Rx Instructions .ROUTE .MEDSUPPLY Qty: 1 0RF Rx Instructions: As directed escitalopram oxalate [Lexapro] 10 mg tablet 10 mg PO DAILY Qty: 30 11RF ibuprofen 600 mg tablet 600 mg PO Q8H PRN (Reason: Pain) Qty: 90 11RF Discharge Orders: Discharge ED (Routine); Ordered 03/21/25 Ordered By: Nati Badillo Referrals: Carlos Enrique Law MD [Primary Care Provider, Family Practice] Patient Instructions: Elbow Fracture (DC), Patient Portal & German Instructions Activity Restrictions/Additional Instructions: As we discussed, case management should reach out to you to help set you up your follow-up orthopedic appointment regarding the radial head fracture in your right elbow. You need to stay in your splint until this appointment. Print Language: Jordanian Coding Level of Care Code ED Target Trimmer for Melisas Macias
--- NOTE | 2025-03-21 15:00 | PC.NURSE ---
this RN applied posterior elbow splint as ordered by Nati Badillo, provider checked and approved splint prior to patient discharge.
[2025-03-21 15:05] VITALS: BP 132/96; PULSE 80; O2SAT 96
--- NOTE | 2025-03-24 07:23 | DCPLANNER ---
messaged ortho for er f/u
== END 2025-03-21 15:05 | disposition home or self-care (01) ==
PROVIDERS: Emergency Provider Physician Assistant; PCP Family Medicine
DX: S52.124A Nondisplaced fracture of head of right radius, initial encounter for closed fracture (principal); W01.0XXA Fall on same level from slipping, tripping and stumbling without subsequent striking against object, initial encounter
CPT/HCPCS: 29105; 73080; 73110; 99283

== ENCOUNTER → 2025-03-26 13:34 | Outpatient (BNVA) | payer SELFPAY | PROVIDERS: PCP Family Medicine; Visit Provider Specialist | DX: S52.124A Nondisplaced fracture of head of right radius, initial encounter for closed fracture (principal); W19.XXXA Unspecified fall, initial encounter | CPT/HCPCS: 73080 ==

== ENCOUNTER 2025-03-26 14:51 | Outpatient (CLI) | payer SELFPAY | END 2025-03-26 14:52 | disposition home or self-care (01) | LOC: SPT 14:52 | PROVIDERS: PCP Family Medicine; Visit Provider Specialist | DX: Z46.89 Encounter for fitting and adjustment of other specified devices (principal); S52.124D Nondisplaced fracture of head of right radius, subsequent encounter for closed fracture with routine healing; X58.XXXD Exposure to other specified factors, subsequent encounter | CPT/HCPCS: L3761 ==

== ENCOUNTER → 2025-04-16 10:49 | Outpatient (BNVA) | payer SELFPAY | PROVIDERS: PCP Family Medicine; Visit Provider Specialist | DX: S52.124D Nondisplaced fracture of head of right radius, subsequent encounter for closed fracture with routine healing (principal); W19.XXXD Unspecified fall, subsequent encounter | CPT/HCPCS: 73080 ==